=== PATIENT | female | born 1975 | race Caucasian/White ===

== ENCOUNTER 2017-09-29 10:27 | Emergency (ER) | payer BC ==
--- NOTE | 2017-09-29 11:58 | UC ---
Ear Complaint HPI - HPI Summary HPI Summary: 42 year old female with back pain. no foot drop. no weakness. no incontinence,. SCIATIC NERVE PAIN, RADIATING DOWN R LEG SINCE TUESDAY. PT HAS BEEN APPLYING HEAT AND DOING EXERCISE WITHOUT RELIEF [ End ] - History of Current Complaint Stated Complaint: LOWER BACK PAIN Time Seen by Provider: 09/29/17 11:56 Hx Obtained From: Patient ?: No Onset/Duration: Sudden Onset Severity Initially: Moderate Severity Currently: Moderate - Allergies/Home Medications Allergies/Adverse Reactions: Allergies Allergy/AdvReac Type Severity Reaction Status Date / Time Penicillins Allergy Severe ANAPHLAXYS Verified 09/29/17 12:04 PMH/Surg Hx/FS Hx/Imm Hx Previously Healthy: Yes - Family History Known Family History: Negative: Cardiac Disease - Social History Occupation: Unemployed Lives: With Family Review of Systems Musculoskeletal: Arthralgia, Decreased ROM Is Patient Immunocompromised?: No All Other Systems Reviewed And Are Negative: Yes Physical Exam Triage Information Reviewed: Yes Appearance: Well-Appearing, No Pain Distress, Well-Nourished Vital Signs Reviewed: Yes Eye Exam: Normal ENT Exam: Normal Dental Exam: Normal Neck exam: Normal Neck: Positive: 1 Respiratory Exam: Normal Cardiovascular Exam: Normal Abdominal Exam: Normal Musculoskeletal Exam: Normal Musculoskeletal: Positive: Edema @ - right lumbar paraspinal, PSIS and piriformis with tenderness to palpation. heel to toe normal. strength 5/5, mild positive right SLR. DTRs normal. skin normal . sensaation intact. no sp tenderness no step offs Neurological Exam: Normal Psychological Exam: Normal Skin Exam: Normal Ear Complaint Course/Dx - Course Course Of Treatment: APAP, start home PT. if Sx worsen go to ED. No trauma or red flags and did discuss those. she is agreaeble to plan - Differential Dx/Diagnosis Provider Diagnoses: sciatica Discharge - Discharge Plan Condition: Good Disposition: HOME Prescriptions: Cyclobenzaprine TAB* [Flexeril 10 MG TAB*] 10 mg PO BID PRN #10 tab PRN Reason: Spasms Methylprednisolone [Medrol Dosepak 4 MG*] 0 mg PO .SEE SARANYA INSTRUCTION #1 tab Patient Education Materials: Sciatica (ED), Lower Back Exercises (ED) Referrals: No Primary Care Phys,NOPCP [Primary Care Provider] - 4 Days
[2017-09-29 12:03] VITALS: BP 116/86
== END 2017-09-29 12:20 | disposition home or self-care (01) ==
LOC: UCCORT 10:27 → MERGE 10:27 → UCCORT 12:20
DX: M54.30 Sciatica, unspecified side (principal); Z88.0 Allergy status to penicillin
CPT/HCPCS: 99202; G0463

== ENCOUNTER 2019-06-03 21:06 | Emergency (ER) | payer BC, OTHER ==
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
[2019-06-03] MEDS ORDERED: predniSONE TAB* 20 MG PO ONE (21:56)
[2019-06-03] MEDS ORDERED: Azithromycin TAB* 250 MG PO ONE (21:56)
[2019-06-03 21:59] VITALS: BP 114/92
[2019-06-03] MEDS ORDERED: predniSONE TAB* 10 MG PO ONE (22:02)
== END 2019-06-03 22:14 | disposition home or self-care (01) ==
LOC: UCCORT 21:06
DX: J02.9 Acute pharyngitis, unspecified (principal); J44.9 Chronic obstructive pulmonary disease, unspecified; G62.9 Polyneuropathy, unspecified; F17.290 Nicotine dependence, other tobacco product, uncomplicated; Z79.899 Other long term (current) drug therapy; Z88.0 Allergy status to penicillin
CPT/HCPCS: 87651; 99212; A9270-GY; G0463; J7512